=== PATIENT | female | born 1970 | race Caucasian/White ===

== ENCOUNTER → 2019-01-15 13:55 | Outpatient (CLI) | payer OTHER, SELFPAY ==
[2019-01-15 16:02] LABS: Estradiol 20.7 pg/mL; Follicle Stimulating Hormone 120.7 mIU/mL
== END ==
PROVIDERS: Family Provider Family Medicine; PCP Family Medicine
DX: N95.1 Menopausal and female climacteric states (principal)
CPT/HCPCS: 36415; 82670; 83001

== ENCOUNTER → 2019-02-16 15:23 | Outpatient (CLI) | payer OTHER, SELFPAY ==
--- NOTE | 2019-02-16 15:25 | BI_ITS ---
MAMMOGRAPHY - BILATERAL SCREENING REASON FOR EXAM: Female, 48 years old. Routine annual screening examination. PERTINENT HISTORY: Non-contributory. TECHNIQUE: Digital bilateral breast beverly (3D mammographic acquisition) in the CC and MLO projections. 2-D mediolateral oblique (MLO) and craniocaudad (CC) views of both breasts were obtained. CAD: Full Field Digital Mammography with Computer Added Detection was performed. COMPARISON: No comparison mammograms available at this time. If any prior films become available, an addendum to this report can be generated. FINDINGS: Breast Composition: The breasts are heterogeneously dense, which may obscure small masses. There are no dominant masses or suspicious calcifications. Fat-containing bilateral axillary lymph nodes. No other significant abnormalities are identified. BI/SCREENING MAMM (CAD), BILAT IMPRESSION: Negative screening mammogram. Yearly followup mammogram recommended. (A) ASSESSMENT CATEGORY: BIRADS Category 2: Benign. A letter regarding these results will be sent to the patient by the facility within 30 days. Approximately 10% of breast cancers are not detected by mammography. A normal mammogram should not delay biopsy of a clinically suspicious abnormality. [id number] Electronically Signed: Aroldo Deshpande, at 9:34 EDT , Service support ,
== END ==
PROVIDERS: Family Provider Family Medicine; PCP Family Medicine; Referring Provider Family Medicine; Visit Provider Family Medicine
DX: Z12.31 Encounter for screening mammogram for malignant neoplasm of breast (principal)
CPT/HCPCS: 77063; 77067

== ENCOUNTER 2019-03-04 10:45 | Outpatient (RCR) | payer OTHER, SELFPAY ==
--- NOTE | 2019-01-22 08:18 | MASS.EVAL ---
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 COLLINS WITH A DIAGNOSIS OF ROTATOR CUFF TENDINITIS. SHE PRESENTS TODAY WITH SYMPTOMS OF A DULL ACHE IN THE RIGHT SHOULDER . IT HURTS MAINLY WHILE SLEEPING ON THE SHOULDER AND SOME NUMBNESS IN HANDS AND SORE ELBOW. THE SYMPTOMS BEGAN IN THE SUMMER OF 2018 AND HAS NOT IMPROVED. LAURA RATES HER HEALTH TO BE IN GOOD CONDITION OVERALL WITH NO MAJOR LIMITATIONS IN HER DAILY ACTIVITIES. THE CURRENT MEDICATIONS LISTED AT THIS TIME IS METROPRO, ALEX, PROBIOTIC, AND FIONASE. OBJECTIVE: THE FIRST TREATMENT CONSISTED OF A MODERATE PRESSURE UPPER BODY MASSAGE. I FOCUSED ON THE CERVICAL, LATERAL SCALENES, UPPER TRAPEZIUM, LEVATOR, RHOMBOIDS, PECTORALS, AND ROTATOR CUFF MUSCLES. A MYOFASCIAL RELEASE AND TRIGGER POINT THERAPY WAS PERFORMED ALONG WITH A INDONESIAN MASSAGE. ASSESSMENT: THE MUSCLE TENSION WAS VERY HIGH ON THE RIGHT SIDE VS. THE LEFT. THE MOST TENDERNESS PLACES AND SEEMED TO HAVE THE MOST REFERRAL PAIN WAS THE RIGHT LATERAL SCALENE, AND TOP OF UPPER TRAPEZIUM. WELL THE BICEP AND LEVATOR AND RHOMBOIDS. THE PATIENT WAS VERY TENDER AND COULDNT HANDLE MUCH PRESSURE. I FEEL OVERALL THERE WAS GOOD RELEASE AND THE TENSION IN THE MUSCLE TISSUE DECREASED POST THE MASSAGE. I FEEL THAT LAURA IS A GREAT CANDIDATE FOR MASSOTHERAPY AT THIS TIME. PLAN: THE PLAN OF CARE WAS REVIEWED WITH THE PATIENT. THE PATIENT IS TO BE SEEN ONCE A WEEK, THEN TWICE A WEEK, THEN NEEDED ON A MONTHLY BASIS FOR ONE HOUR SESSIONS OF MASSOTHERAPY.
--- NOTE | 2019-01-22 08:40 | MASS.EVAL_ITS ---
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 COLLINS WITH A DIAGNOSIS OF ROTATOR CUFF TENDINITIS. SHE PRESENTS TODAY WITH SYMPTOMS OF A DULL ACHE IN THE RIGHT SHOULDER . IT HURTS MAINLY WHILE SLEEPING ON THE SHOULDER AND SOME NUMBNESS IN HANDS AND SORE ELBOW. THE SYMPTOMS BEGAN IN THE SUMMER OF 2018 AND HAS NOT IMPROVED. LAURA RATES HER HEALTH TO BE IN GOOD CONDITION OVERALL WITH NO MAJOR LIMITATIONS IN HER DAILY ACTIVITIES. THE CURRENT MEDICATIONS LISTED AT THIS TIME IS METROPRO, ALEX, PROBIOTIC, AND FIONASE. OBJECTIVE: THE FIRST TREATMENT CONSISTED OF A MODERATE PRESSURE UPPER BODY MASSAGE. I FOCUSED ON THE CERVICAL, LATERAL SCALENES, UPPER TRAPEZIUM, LEVATOR, RHOMBOIDS, PECTORALS, AND ROTATOR CUFF MUSCLES. A MYOFASCIAL RELEASE AND TRIGGER POINT THERAPY WAS PERFORMED ALONG WITH A VIETNAMESE MASSAGE. ASSESSMENT: THE MUSCLE TENSION WAS VERY HIGH ON THE RIGHT SIDE VS. THE LEFT. THE MOST TENDERNESS PLACES AND SEEMED TO HAVE THE MOST REFERRAL PAIN WAS THE RIGHT LATERAL SCALENE, AND TOP OF UPPER TRAPEZIUM. WELL THE BICEP AND LEVATOR AND RHOMBOIDS. THE PATIENT WAS VERY TENDER AND COULDNT HANDLE MUCH PRESSURE. I FEEL OVERALL THERE WAS GOOD RELEASE AND THE TENSION IN THE MUSCLE TISSUE DECREASED POST THE MASSAGE. I FEEL THAT LAURA IS A GREAT CANDIDATE FOR MASSOTHERAPY AT THIS TIME. PLAN: THE PLAN OF CARE WAS REVIEWED WITH THE PATIENT. THE PATIENT IS TO BE SEEN ONCE A WEEK, THEN TWICE A WEEK, THEN NEEDED ON A MONTHLY BASIS FOR ONE HOUR SESSIONS OF MASSOTHERAPY.
--- NOTE | 2019-09-25 12:57 | DS.PCM_ITS ---
Massage Therapy Discharge Summary: DATE: 09/25/2019 V#: [id number] PT NAME: LAURA PRECIADO : 1970 REF PHYS: DR. COLLINS THE PATIENT WAS SEEN FOR MASSOTHERAPY EVALUATION ON 01/15/2019 WITH A DIAGNOSIS OF RIGHT SHOULDER PAIN. THE PATIENT WAS TREATED 2 SESSIONS OF MASSAGE. THE LAST VISIT THE PATIENT REPORTED OF HAVING LESS PAIN AND HAS NOT BEEN SEEN, SO AT THIS TIME I AM DISCHARGING THE PATIENT FROM OUR [facility] FOR 2019.
== END 2019-03-04 19:00 | disposition home or self-care (01) ==
LOC: MASS 10:45
PROVIDERS: Family Provider Family Medicine; PCP Family Medicine; Referring Provider Family Medicine; Visit Provider Family Medicine
DX: M75.81 Other shoulder lesions, right shoulder (principal)
CPT/HCPCS: 97124

== ENCOUNTER → 2019-07-08 11:05 | Outpatient (CLI) | payer OTHER, SELFPAY ==
[2019-07-08 12:26] LABS: Absolute Lymphocyte Count 1.73 X10^3/uL (0.83-4.51); Absolute Neutrophil Count 3.8 X10^3/uL (2.0-7.7); Basophil# 0.04 X10^3/uL; Basophil% 0.6 % (0-1); Eosinophil# 0.13 X10^3/uL; Eosinophils% 2.1 % (0-5); Hematocrit 40.9 % (37-47); Hemoglobin 13.1 g/dL (12.0-15.0); Lymphocyte # 1.73 X10^3/ul (4.0); Lymphocyte % 27.9 % (19-41); Mean Corpuscular Hgb 29.8 pg (27.0-32.0); Mean Platelet Vol. 10.1 fl (6.2-12.0); Monocyte# 0.49 X10^3/uL; Monocyte% 7.9 % (0-10); NRBC Flagged by Analyzer 0 % (0-5); Neutrophil # 3.78 X10^3/uL (2.7-7.7); Neutrophil % 61.2 % (47-70); Platelet Count 223 K/mm3 (150-450); RBC Distribution Width CV 12.2 % (11.6-14.6); RBC Distribution Width SD 42.2 fl (35.1-43.9); White Blood Count 6.2 K/mm3 (4.4-11.0)
[2019-07-08 12:28] LABS: Erythrocyte Sedimentation Rate 18 mm/hr (0-30)
[2019-07-08 13:10] LABS: ALB/GLOB Ratio 1.1 RATIO (0.9-2.4); AST(SGOT) 61 U/L (15-37); Alanine Aminotransfer ALT/SGPT 110 U/L (13-56); Albumin, Serum 4.1 g/dL (3.2-5.0); Alkaline Phosphatase 141 U/L (45-117); Anion Gap 7 (5-15); BUN 16 mg/dL (7-18); BUN/Creat Ratio 20.4 RATIO (10-20); CRP < 2.90 mg/L (0.0-3.0); Calcium,Total 9.3 mg/dL (8.5-10.1); Chloride 107 mmol/L (98-107); Cholesterol 190 mg/dL (200); Creatinine, Serum 0.78 mg/dL (0.55-1.02); EST Glomerular Filtration Rate 83 mL/min (>60); Est Glom Filt Rate - Afr Amer 100 mL/min (>60); Globulin 3.9 g/dL (2.2-4.2); Glucose 75 mg/dL (74-106); High Density Lipoprotein 74 mg/dL; Potassium 4.2 mmol/L (3.5-5.1); Rheumatoid Factor < 10.0 IU/mL (<15); Sodium Level 142 mmol/L (136-145); Triglycerides 143 mg/dL; Very Low Density Lipoprotein 29 mg/dL (5-40)
[2019-07-15 15:32] LABS: Anti-Centromere B Ab <0.2 AI (0.0-0.9); Anti-Chromatin 3.3 AI (0.0-0.9); Anti-Jo <0.2 AI (0.0-0.9); Anti-Scleroderma-70 AB 0.5 AI (0.0-0.9); RNP Ab <0.2 AI (0.0-0.9); SJOGREN'S Anti-SS-A test < 0.2 AI (0.0-0.9); SJOGREN'S Anti-SS-B test < 0.2 AI (0.0-0.9); Smith Ab <0.2 AI (0.0-0.9)
[2019-07-15 16:50] LABS: Anti-dsDNA Ab <1 IU/mL (0-9)
== END ==
PROVIDERS: Family Provider Family Medicine; PCP Family Medicine; Visit Provider Family Medicine
DX: Z00.00 Encounter for general adult medical examination without abnormal findings (principal); I10 Essential (primary) hypertension; M25.50 Pain in unspecified joint
CPT/HCPCS: 36415; 80053; 80061; 85025; 85652; 86038; 86140; 86225; 86235; 86431

== ENCOUNTER → 2019-08-25 10:26 | Outpatient (CLI) | payer OTHER, SELFPAY ==
[2019-08-25 12:26] LABS: Absolute Lymphocyte Count 1.77 X10^3/uL (0.83-4.51); Absolute Neutrophil Count 3.5 X10^3/uL (2.0-7.7); Basophil# 0.05 X10^3/uL; Basophil% 0.8 % (0-1); Eosinophil# 0.11 X10^3/uL; Eosinophils% 1.9 % (0-5); Hemoglobin 12.6 g/dL (12.0-15.0); Lymphocyte # 1.77 X10^3/ul (4.0); Lymphocyte % 29.9 % (19-41); Mean Corp Hgb Conc 32.3 g/dL (32-36); Mean Corpuscular Hgb 30.1 pg (27.0-32.0); Mean Corpuscular Volume 93.3 fL (81-99); Mean Platelet Vol. 10.5 fl (6.2-12.0); Monocyte# 0.47 X10^3/uL; NRBC Flagged by Analyzer 0 % (0-5); Neutrophil # 3.48 X10^3/uL (2.7-7.7); Neutrophil % 58.9 % (47-70); Platelet Count 221 K/mm3 (150-450); RBC Distribution Width CV 12.2 % (11.6-14.6); RBC Distribution Width SD 41.7 fl (35.1-43.9); Red Blood Count 4.18 M/mm3 (4.2-5.4); White Blood Count 5.9 K/mm3 (4.4-11.0)
[2019-08-25 12:44] LABS: Protein, Urine (Random) 13.7 mg/dL (<11.9); Protein:Creat Ratio 58 mg/g CRE (0-200)
[2019-08-25 12:53] LABS: Color, Urine Yellow (Yellow); Glucose, Dipstick Normal (Normal); Ketone-Dipstick Negative (Negative); Leukocyte Esterase-Dipstick 100 /ul (Negative); Nitrite-Dipstick Negative (Negative); Occult Blood-Urine Negative /ul (Negative); Protein-Dipstick 30 mg/dl (Negative); Specific Gravity, Urine 1.025 (1.002-1.030); Urine Bilirubin Dipstick Negative (Negative); Urine Clarity Clear (Clear); Urine Urobilinogen 1 mg/dl (Normal)
[2019-08-25 12:54] LABS: ALB/GLOB Ratio 1.2 RATIO (0.9-2.4); AST(SGOT) 35 U/L (15-37); Alanine Aminotransfer ALT/SGPT 51 U/L (13-56); Albumin, Serum 4.3 g/dL (3.2-5.0); Alkaline Phosphatase 143 U/L (45-117); Anion Gap 8 (5-15); BUN 16 mg/dL (7-18); BUN/Creat Ratio 18.3 RATIO (10-20); Calcium,Total 9.3 mg/dL (8.5-10.1); Chloride 106 mmol/L (98-107); Creatinine, Serum 0.88 mg/dL (0.55-1.02); EST Glomerular Filtration Rate 73 mL/min (>60); Est Glom Filt Rate - Afr Amer 88 mL/min (>60); Globulin 3.6 g/dL (2.2-4.2); Glucose 77 mg/dL (74-106); Protein, Total 7.9 g/dL (6.4-8.2); Sodium Level 140 mmol/L (136-145)
[2019-08-25 13:24] LABS: Hepatitis B Surface Antibody Reactive; Hepatitis B Surface Antigen Non-Reactive (Nonreactive); Hepatitis C Antibody Non-Reactive (Nonreactive)
[2019-08-26 08:02] LABS: Hepatitis B Core AB IgM Negative (Negative)
== END ==
PROVIDERS: Family Provider Family Medicine; PCP Family Medicine; Referring Provider Internal Medicine Rheumatology; Visit Provider Internal Medicine Rheumatology
DX: M06.4 Inflammatory polyarthropathy (principal); R76.8 Other specified abnormal immunological findings in serum; L73.2 Hidradenitis suppurativa
CPT/HCPCS: 36415; 80053; 81002; 82570; 84156; 85025; 86705; 86706; 86803; 87340

== ENCOUNTER → 2019-09-01 10:09 | Outpatient (CLI) | payer OTHER, SELFPAY ==
--- NOTE | 2019-09-01 10:12 | US_ITS ---
STUDY: ABDOMINAL ULTRASOUND - RIGHT UPPER QUADRANT REASON FOR VISIT: Female, 48 years old elevated LFTs TECHNIQUE: Ultrasound evaluation of the right upper quadrant was performed with real-time and static harrell-scale imaging. TECHNICAL QUALITY: Adequate. COMPARISON: None. FINDINGS: Pancreas: Visualized portions of pancreas are unremarkable. Liver: Measures 14.4 cm. Liver shows normal echogenicity. No masses identified. Gallbladder: Surgically absent Common bile duct: Measures 4 mm. No intraductal stones identified. Right kidney: Measures 10.5 cm in length. Normal contour. No cysts. No masses, stones, or hydronephrosis identified. Renal cortical thickness appears normal. Additional findings: None. US/Liver IMPRESSION: Cholecystectomy. Otherwise unremarkable right upper quadrant sonogram. Electronically Signed: Mario Miller, at 12:19 EST Tel , Service support ,
== END ==
PROVIDERS: Family Provider Family Medicine; PCP Family Medicine; Referring Provider Internal Medicine Rheumatology; Visit Provider Internal Medicine Rheumatology
DX: M06.4 Inflammatory polyarthropathy (principal); R76.8 Other specified abnormal immunological findings in serum; L73.2 Hidradenitis suppurativa
CPT/HCPCS: 76705

== ENCOUNTER → 2019-12-18 07:29 | Outpatient (CLI) | payer OTHER, SELFPAY ==
[2019-12-18 09:05] LABS: Absolute Lymphocyte Count 2.31 X10^3/uL (0.83-4.51); Absolute Neutrophil Count 4.4 X10^3/uL (2.0-7.7); Basophil# 0.07 X10^3/uL; Basophil% 0.9 % (0-1); Eosinophils% 2.6 % (0-5); Hematocrit 39.4 % (37-47); Hemoglobin 12.5 g/dL (12.0-15.0); Lymphocyte # 2.31 X10^3/ul (4.0); Lymphocyte % 29.7 % (19-41); Mean Corp Hgb Conc 31.7 g/dL (32-36); Mean Corpuscular Hgb 29.8 pg (27.0-32.0); Mean Corpuscular Volume 93.8 fL (81-99); Mean Platelet Vol. 10.2 fl (6.2-12.0); Monocyte# 0.75 X10^3/uL; Monocyte% 9.6 % (0-10); NRBC Flagged by Analyzer 0 % (0-5); Neutrophil # 4.43 X10^3/uL (2.7-7.7); Neutrophil % 56.9 % (47-70); Platelet Count 242 K/mm3 (150-450); RBC Distribution Width CV 12.1 % (11.6-14.6); RBC Distribution Width SD 41.6 fl (35.1-43.9); White Blood Count 7.8 K/mm3 (4.4-11.0)
[2019-12-18 09:27] LABS: ALB/GLOB Ratio 1.1 RATIO (0.9-2.4); AST(SGOT) 42 U/L (15-37); Alanine Aminotransfer ALT/SGPT 63 U/L (13-56); Albumin, Serum 4.4 g/dL (3.2-5.0); Alkaline Phosphatase 140 U/L (45-117); Anion Gap 6 (5-15); BUN 28 mg/dL (7-18); BUN/Creat Ratio 30.6 RATIO (10-20); Calcium,Total 9.5 mg/dL (8.5-10.1); Chloride 105 mmol/L (98-107); Creatinine, Serum 0.91 mg/dL (0.55-1.02); EST Glomerular Filtration Rate 69 mL/min (>60); Est Glom Filt Rate - Afr Amer 83 mL/min (>60); Globulin 4.1 g/dL (2.2-4.2); Glucose 87 mg/dL (74-106); Potassium 3.6 mmol/L (3.5-5.1); Protein, Total 8.5 g/dL (6.4-8.2); Sodium Level 139 mmol/L (136-145)
== END ==
PROVIDERS: PCP Family Medicine; Referring Provider Internal Medicine Rheumatology; Visit Provider Internal Medicine Rheumatology
DX: M06.4 Inflammatory polyarthropathy (principal); R76.8 Other specified abnormal immunological findings in serum; M35.7 Hypermobility syndrome; L73.2 Hidradenitis suppurativa; Q66.71 Congenital pes cavus, right foot; Q66.72 Congenital pes cavus, left foot; J30.9 Allergic rhinitis, unspecified; I10 Essential (primary) hypertension
CPT/HCPCS: 36415; 80053; 85025

== ENCOUNTER → 2020-02-22 16:13 | Outpatient (CLI) | payer OTHER, SELFPAY ==
--- NOTE | 2020-02-22 16:15 | BI_ITS ---
MAMMOGRAPHY - BILATERAL SCREENING REASON FOR EXAM: Female, 49 years old. Routine annual screening examination. PERTINENT HISTORY: Non-contributory. TECHNIQUE: Digital bilateral breast merle (3D mammographic acquisition) in the CC and MLO projections. 2-D mediolateral oblique (MLO) and craniocaudad (CC) views of both breasts were obtained. CAD: Full Field Digital Mammography with Computer Added Detection was performed. COMPARISON: Comparison is made with prior study dated February 16, 2019. FINDINGS: Breast Composition: The breasts are heterogeneously dense, which may obscure small masses. There are no dominant masses or suspicious calcifications. Stable benign-appearing bilateral axillary lymph nodes. No other significant abnormalities are identified. There has been no significant change since the prior study. BI/SCREEN MAMM (CAD) W/MERLE BILAT IMPRESSION: Stable bilateral screening mammogram. Yearly follow-up mammogram recommended. (A) ASSESSMENT CATEGORY: BIRADS Category 2: Benign. A letter regarding these results will be sent to the patient by the facility within 30 days. Approximately 10% of breast cancers are not detected by mammography. A normal mammogram should not delay biopsy of a clinically suspicious abnormality. [id number] Electronically Signed: Aroldo Deshpande, at 8:21 EDT , Service support ,
== END ==
PROVIDERS: PCP Family Medicine; Referring Provider Family Medicine; Visit Provider Family Medicine
DX: Z12.31 Encounter for screening mammogram for malignant neoplasm of breast (principal)
CPT/HCPCS: 77063; 77067